=== PATIENT | female | born 1955 | race Caucasian/White ===

== ENCOUNTER 2016-04-02 08:04 | Emergency (ER) | payer MEDICARE, OTHER ==
[~2016-04-02] VITALS: Ht 162.6 cm; Wt 81.6 kg
[2016-04-02 08:10] VITALS: BP 157/99
== END 2016-04-02 08:27 | disposition home or self-care (01) ==
LOC: ER 08:07
DX: R09.81 Nasal congestion (principal); Z88.5 Allergy status to narcotic agent; I10 Essential (primary) hypertension
CPT/HCPCS: 99283; A4606; Z7610

== ENCOUNTER 2020-11-04 17:38 | Emergency (ER) | payer MEDICARE, OTHER ==
[~2020-11-04] VITALS: Ht 162.6 cm; Wt 86.2 kg
[2020-11-04 17:44] VITALS: BP 174/79
--- NOTE | 2020-11-04 17:48 | NUR ---
SEEN AND EXMAINED BY SHABNAM GARZA
--- NOTE | 2020-11-04 17:52 | NUR ---
[employer] MANAGER AT BEDSIDE FOR XRAY.
[2020-11-04] MEDS ORDERED: ACET-2605 PO (18:29)
--- NOTE | 2020-11-04 18:40 | NUR ---
DANI AGEE AT BEDSIDE FOR SPLINTING.
== END 2020-11-04 19:02 | disposition home or self-care (01) ==
LOC: ER 17:38
DX: S92.425A Nondisplaced fracture of distal phalanx of left great toe, initial encounter for closed fracture (principal); I10 Essential (primary) hypertension; F31.9 Bipolar disorder, unspecified; Z88.5 Allergy status to narcotic agent; W01.0XXA Fall on same level from slipping, tripping and stumbling without subsequent striking against object, initial encounter; Y93.89 Activity, other specified; Y92.098 Other place in other non-institutional residence as the place of occurrence of the external cause; Y99.8 Other external cause status
CPT/HCPCS: 73630-TC